=== PATIENT | male | born 1965 | race Caucasian/White ===

== ENCOUNTER → 2018-10-06 | Outpatient (CLI) | payer BC ==
[2018-10-08 21:31] LABS: Corn IgG 14.5 mcg/mL (< 2.0); Cow's Milk IgG 51.9 mcg/mL (< 2.0); Potato IgG 3.9 mcg/mL (< 2.0); Soybean IgG 4.5 mcg/mL (< 2.0); Tomato IgG 4.8 mcg/mL (< 2.0); Wheat IgG 10.9 mcg/mL (< 2.0)
[2018-10-10 08:09] LABS: Alt. alternata IgE Class CLASS II; Alternaria alternata IgE 1.56 kU/L (<0.35); Asperg. fumagatus IgE <0.35 kU/L (<0.35); Asperg. fumagatus IgE Class CLASS 0; Aureo. pullulans IgE <0.35 kU/L (<0.35); Birch(Com.Silvr) IgE <0.35 kU/L (<0.35); Birch(Com.Silvr) IgE Class CLASS 0; Candida albicans IgE Class CLASS 0; Cat Epith & Dander IgE <0.35 kU/L (<0.35); Cat Epith & Dander IgE Class CLASS 0; Clad herbarum IgE <0.35 kU/L (<0.35); Cockroach IgE <0.35 kU/L (<0.35); Com. Pigweed IgE <0.35 kU/L (<0.35); Com. Pigweed IgE Class CLASS 0; Cottonwood IgE <0.35 kU/L (<0.35); Dermato. Pteronyssinus IgE <0.35 kU/L (<0.35); Dermato. farinae IgE <0.35 kU/L (<0.35); Dermato. farinae IgE Class CLASS 0; Dog Dander IgE <0.35 kU/L (<0.35); English Plantain IgE Class CLASS 0; Epicoccum purpurascens Class CLASS 0; Epicoccum purpurascens IgE <0.35 kU/L (<0.35); Johnson Grass IgE Class CLASS 0; Lamb's Quarter IgE <0.35 kU/L (<0.35); Lamb's Quarter IgE Class CLASS 0; Maple (Box Elder) IgE <0.35 kU/L (<0.35); Maple (Box Elder) IgE Class CLASS 0; Mucor racemosus IgE <0.35 kU/L (<0.35); Mucor racemosus IgE Class CLASS 0; Oak IgE <0.35 kU/L (<0.35); Rhizopus nigricans IgE <0.35 kU/L (<0.35); S.rostrata/Helminth Class CLASS 0; S.rostrata/Helminth IgE <0.35 kU/L (<0.35); Sycamore(Mpl.Lf) IgE <0.35 kU/L (<0.35); Timothy Grass IgE 0.43 kU/L (<0.35); Walnut Tree IgE <0.35 kU/L (<0.35); Walnut Tree IgE Class CLASS 0; White Ash IgE Class CLASS 0
== END | disposition home or self-care (01) ==
LOC: LABWHC1 08:35
PROVIDERS: ATTEND Nurse Practitioner Family
DX: J30.89 Other allergic rhinitis (principal)
CPT/HCPCS: 36415; 86001; 86003

== ENCOUNTER → 2018-10-06 | Outpatient (CLI) | payer BC ==
--- NOTE | 2018-10-06 08:38 | CT ---
EXAMINATION TYPE: CT sinus wo con DATE OF EXAM: 10/06/2018 COMPARISON: None HISTORY: Facial pain, pressure and sinus drainage for 6+ weeks CT DLP: 594 mGycm CONTRAST: 0 mL of Isovue 300 The paranasal sinuses are examined in the axial plane at 2 mm thick sections. Reconstructed images i n the coronal plane were obtained. Mucosal thickening is through the inferior right maxillary sinus. Posterior ethmoid air cells have m ucosal thickening bilaterally. Some mild mucosal thickening is within anterior ethmoid air cells. Th ere is mucosal thickening within the bilateral sphenoid sinuses. Very minimal mucosal thickening may be within the left frontal sinus. The septum is evaluated. There is septal deviation to the right. The left ostiomeatal unit is patent. The right ostiomeatal unit is obstructed. IMPRESSIONS: 1. Obstruction of the right ostiomeatal unit. 2. Diffuse pansinus mucosal thickening without air-fluid levels can be related to chronic sinusitis
== END | disposition home or self-care (01) ==
LOC: RADCTMAIN 07:56
PROVIDERS: ATTEND Otolaryngology
DX: J34.89 Other specified disorders of nose and nasal sinuses (principal); J32.9 Chronic sinusitis, unspecified
CPT/HCPCS: 70486

== ENCOUNTER 2022-07-07 08:45 | Day surgery (SDC) | payer BC ==
[~2022-07-07 08:45] MED LIST: LACTATED RINGERS 1,000 ML IV SCH
[2022-07-07 09:33] VITALS: TEMP 96.8
[2022-07-07] MEDS ORDERED: PROPOFOL 10 MG/ML 20 ML VIAL IV ONE (10:26)
--- NOTE | 2022-07-07 10:50 | P.PCN ---
Date of Procedure: 07/07/22 Procedure(s) Performed: BRIEF HISTORY: Patient is a 57-year-old pleasant white male scheduled for an elective colonoscopy as a part of evaluation of chronic diarrhea for the last 2 years duration. He also has prior history of colon polyps. Last colonoscopy was 3 years ago. His been having bowel movements anywhere from 10-12 a day which are loose to watery in consistency. PROCEDURE PERFORMED: Colonoscopy with biopsy and snare polypectomy. PREOPERATIVE DIAGNOSIS: History of colon polyps and chronic diarrhea. IV sedation per Anesthesia. PROCEDURE: After informed consent was obtained, the patient, was brought into the endoscopy unit. IV sedation was administered by Anesthesia under continuous monitoring. Digital rectal examination was normal. Initially the Olympus CF-160 flexible video colonoscope was then inserted in the rectum, gradually advanced into the cecum without any difficulty. Careful examination was performed as the scope was gradually being withdrawn. Ileocecal valve and the appendiceal orifice were visualized and appeared normal. Prep was excellent. Mucosa of the cecum, ascending colon appeared normal. In the transverse colon there was a 5 mm polyp that was removed by snare polypectomy. Rest of the, transverse colon, descending colon, sigmoid colon, and rectum appeared normal. scattered sigmoidal mucosa seen. Random biopsies were done from ascending and descending colon to rule out microscopic/collagenous colitis. Retroflexion was performed in the rectum and no lesions were seen. The patient tolerated the procedure well. IMPRESSION: 5 mm transverse colon polyp status post polypectomy Scattered sigmoid diverticulosis RECOMMENDATIONS: Findings of this examination were discussed with the patient as well as his family. He was advised to follow with the biopsy results and he'll be seen in office in 2 weeks..
[2022-07-07 11:07] VITALS: BP 125/83; PULSE 63; RESP 18
== END 2022-07-07 11:33 | disposition home or self-care (01) ==
LOC: ORWHC2ENDO 08:45
PROVIDERS: ATTEND Internal Medicine Gastroenterology
DX: D12.3 Benign neoplasm of transverse colon (principal); K57.30 Diverticulosis of large intestine without perforation or abscess without bleeding; Z86.010 Personal history of colon polyps; Z79.899 Other long term (current) drug therapy; Z98.890 Other specified postprocedural states; Z91.012 Allergy to eggs
CPT/HCPCS: 88305; 45380; 45385; J2704

== ENCOUNTER → 2022-07-21 | Outpatient (CLI) | payer BC ==
[2022-07-22 03:38] LABS: Gliadin AB IgA, Deaminated NEGATIVE (NEGATIVE); Gliadin AB IgA, Unit 0.3 U/mL; Gliadin AB IgG, Deaminated NEGATIVE (NEGATIVE); Gliadin AB IgG, Unit <0.4 U/mL
== END | disposition home or self-care (01) ==
LOC: LABWHC1 16:07
PROVIDERS: ATTEND Internal Medicine Gastroenterology
DX: Z83.79 Family history of other diseases of the digestive system (principal)
CPT/HCPCS: 36415; 83516

== ENCOUNTER 2023-03-05 12:08 | Emergency (ER) | payer BC ==
[2023-03-05 12:14] VITALS: TEMP 100.1
[2023-03-05] MEDS ORDERED: ONDANSETRON 4 MG/2 ML VIAL IVP STA (12:29)
[2023-03-05] MEDS ORDERED: MORPHINE SULFATE 4 MG/ML SYRINGE IVP STA (12:29)
--- NOTE | 2023-03-05 12:32 | ED ---
General Adult HPI - General Chief complaint: Urogenital Stated complaint: Left side pain Time Seen by Provider: 03/05/23 12:16 Source: patient, RN notes reviewed Mode of arrival: ambulatory Limitations: no limitations - History of Present Illness Initial comments: 57-year-old male with a past medical history of CLL-SLL , hypertension, prostate disorder presents to the emergency room for chief only of left flank pain. Patient states this started last night. She states the pain is severe at an 8 out of 10. He could not sleep. States it is burning when he urinates and he is urinating frequently. Of note patient just received a chemo infusion 2 days ago at [facility] where he is being treated for his CLL. He occasionally has fevers after his treatments which she reports is normal for him. He states his doctors do not want him to take anything for the fever and monitor if it goes above 101.5. He is concerned he could have a kidney infection or kidney stone. He denies any diarrhea or GI symptoms. Denies any upper respiratory symptoms. Patient has no other complaints at this time including shortness of breath, chest pain, nausea or vomiting, headache, or visual changes. - Related Data Home Medications Medication Instructions Recorded Confirmed Cetirizine HCl [Zyrtec] 10 mg PO DAILY 04/28/16 03/05/23 Losartan Potassium [Cozaar] 100 mg PO DAILY 04/28/16 03/05/23 Multivitamin [Men's Multi-Vitamin] 1 tab PO DAILY 04/28/16 03/05/23 Propranolol LA [Inderal LA] 80 mg PO DAILY 07/06/22 03/05/23 ALPRAZolam [Xanax] 0.5 mg PO HS PRN 03/05/23 03/05/23 Acyclovir [Zovirax] 400 mg PO BID 03/05/23 03/05/23 Escitalopram [Lexapro] 5 mg PO HS 03/05/23 03/05/23 Gazyva (Obinutuzumab) 1 dose IV Q30D 03/05/23 03/05/23 Venetoclax [Venclexta] 400 mg PO DAILY@1800 03/05/23 03/05/23 amLODIPine [Norvasc] 5 mg PO DAILY 03/05/23 03/05/23 diphenhydrAMINE [Benadryl] 25 mg PO HS 03/05/23 03/05/23 traZODone HCL [Desyrel] 50 mg PO HS 03/05/23 03/05/23 Previous Rx's Medication Instructions Recorded Ondansetron Odt [Zofran Odt] 4 mg PO Q8HR PRN #14 tab 03/05/23 Sulfamethox-Tmp 800-160Mg [Bactrim 1 tab PO Q12HR #28 tab 03/05/23 DS 800-160 mg] Allergies Allergy/AdvReac Type Severity Reaction Status Date / Time No Known Allergies Allergy Verified 03/05/23 14:14 Review of Systems ROS Statement: Those systems with pertinent positive or pertinent negative responses have been documented in the HPI. ROS Other: All systems not noted in ROS Statement are negative. Past Medical History Past Medical History: Hypertension, Prostate Disorder Additional Past Medical History / Comment(s): hand tremors radha. CLL-SLL History of Any Multi-Drug Resistant Organisms: None Reported Past Surgical History: No Surgical Hx Reported Additional Past Surgical History / Comment(s): colonocsopy, liver biopsy,lft thumb surgery to repair injury Past Anesthesia/Blood Transfusion Reactions: No Reported Reaction Past Psychological History: No Psychological Hx Reported Smoking Status: Former smoker Past Alcohol Use History: Daily Past Drug Use History: None Reported - Past Family History Mother Family Medical History: Cancer Additional Family Medical History / Comment(s): PANCREAS- CANCER General Exam Limitations: no limitations General appearance: alert, in no apparent distress Head exam: Present: atraumatic Eye exam: Present: normal appearance, PERRL, EOMI. Absent: conjunctival inj ection ENT exam: Present: normal exam, mucous membranes moist Neck exam: Present: normal inspection, full ROM. Absent: tenderness Respiratory exam: Present: normal lung sounds bilaterally Cardiovascular Exam: Present: regular rate, normal rhythm, normal heart sounds GI/Abdominal exam: Present: soft, normal bowel sounds. Absent: distended, tenderness, guarding Back exam: Present: CVA tenderness (L). Absent: CVA tenderness (R) Neurological exam: Present: alert Course Vital Signs 03/05/23 03/05/23 03/05/23 12:09 12:50 13:00 Temperature 100.1 F H Pulse Rate 68 69 67 Respiratory 18 16 18 Rate Blood Pressure 142/81 120/67 127/74 O2 Sat by Pulse 94 L 98 99 Oximetry 03/05/23 03/05/23 13:30 14:00 Temperature Pulse Rate 71 73 Respiratory 18 16 Rate Blood Pressure 127/76 124/70 O2 Sat by Pulse 97 99 Oximetry Medical Decision Making - Medical Decision Making Was pt. sent in by a medical professional or institution (, [facility], SUPPLY PERSON, urgent care, hospital, or group home...) When possible be specific @ -No Did you speak to anyone other than the patient for history (EMS, parent, family, police, friend...)? What history was obtained from this source @ - Did you review nursing and triage notes (agree or disagree)? Why? @ -[I reviewed and agree with nursing and triage notes] Were old charts reviewed (outside hosp., previous admission, EMS record, old EKG, old radiological studies, urgent care reports/EKG's, group home records)? Report findings @ -[No old charts were reviewed] Differential Diagnosis (chest pain, altered mental status, abdominal pain women, abdominal pain men, vaginal bleeding, weakness, fever, dyspnea, syncope, headache, dizziness, GI bleed, back pain, seizure, CVA, palpatations, mental health)? @ -Sepsis, UTI, kidney stone, chemo reaction EKG interpreted by me (3pts min.). @ -[As above] X-rays interpreted by me (1pt min.). @ -Chest Xray CT interpreted by me (1pt min.). @ -CT abdomen/pelvis with pyelo U/S interpreted by me (1pt. min.). @ -[None done] What testing was considered but not performed or refused? (CT, X-rays, U/S, labs)? Why? @ -CT with contrast but could obscure stone What meds were considered but not given or refused? Why? @ -[None] Did you discuss the management of the patient with other professionals (professionals i.e. , ANGELICA, SUPPLY PERSON, lab, RT, psych nurse, social media manager, cyber operator, teacher, property and supply officer, supportive employment case manager)? Give summary @ -Dr Boo, pharmacist Was smoking cessation discussed for >3mins.? @ -[No] Was critical care preformed (if so, how long)? @ -[No] Were there social determinants of health that impacted care today? How? (Homelessness, low income, unemployed, alcoholism, drug addiction, transportation, low edu. Level, literacy, decrease access to med. care, nursing home, rehab)? @ -[No] Was there de-escalation of care discussed even if they declined (Discuss DNR or withdrawal of care, Hospice)? DNR status @ -[No] What co-morbidities impacted this encounter? (DM, HTN, Smoking, COPD, CAD, Cancer, CVA, ARF, Chemo, Hep., AIDS, mental health diagnosis, sleep apnea, morb id obesity)? @ -Cancer Was patient admitted / discharged? Hospital course, mention meds given and route, prescriptions, significant lab abnormalities, going to OR and other pertinent info. @ -Vitals are stable. Patient has a temperature of 100.1. White blood cell count was 11.4 with a left shift. Urinalysis does show evidence of urinary tract infection. Blood culture and urine culture pending. Chest x-ray is clear however CT abdomen and pelvis shows mild to moderate left-sided hydronephrosis without obstructing calculus. He does have additional adenopathy which is known. Patient was given 2 g Rocephin and IV fluids. I discussed outpatient treatment with pharmacist. Initial plan was to start patient on Cipro however he has a severe drug interaction with this. Therefore he will be put on Bactrim. He will follow-up with his doctor Tuesday morning. Strict return parameters. Undiagnosed new problem with uncertain prognosis? @ -[No] Drug Therapy requiring intensive monitoring for toxicity (Heparin, Nitro, Insulin, Cardizem)? @ -[No] Were any procedures done? @ -[No] Diagnosis/symptom? @ -Pyelonephritis Acute, or Chronic, or Acute on Chronic? @ -acute Uncomplicated (without systemic symptoms) or Complicated (systemic symptoms)? @ -complicated Side effects of treatment? @ -[No] Exacerbation, Progression, or Severe Exacerbation? @ -[No] Poses a threat to life or bodily function? How? (Chest pain, [place], HI, pneumonia, PE, COPD, DKA, ARF, appy, cholecystitis, CVA, Diverticulitis, Homicidal, Suici gail, threat to staff... and all critical care pts) @ -[No] - Lab Data Result diagrams: 03/05/23 12:40 03/05/23 12:40 Lab Results 03/05/23 03/05/23 03/05/23 Range/Units 12:25 12:25 12:40 WBC 11.4 H (3.8-10.6) k/uL RBC 4.57 (4.30-5.90) m/uL Hgb 14.3 (13.0-17.5) gm/dL Hct 42.6 (39.0-53.0) % MCV 93.1 (80.0-100.0) fL MCH 31.2 (25.0-35.0) pg MCHC 33.6 (31.0-37.0) g/dL RDW 13.0 (11.5-15.5) % Plt Count 433 (150-450) k/uL MPV 6.6 Neutrophils % 83 % Lymphocytes % 7 % Monocytes % 8 % Eosinophils % 1 % Basophils % 0 % Neutrophils # 9.5 H (1.3-7.7) k/uL Lymphocytes # 0.8 L (1.0-4.8) k/uL Monocytes # 0.9 (0-1.0) k/uL Eosinophils # 0.1 (0-0.7) k/uL Basophils # 0.0 (0-0.2) k/uL Sodium (137-145) mmol/L Potassium (3.5-5.1) mmol/L Chloride (98-107) mmol/L Carbon Dioxide (22-30) mmol/L Anion Gap mmol/L BUN (9-20) mg/dL Creatinine (0.66-1.25) mg/dL Est GFR (CKD-EPI)AfAm (>60 ml/min/1.73 sqM) Est GFR (CKD-EPI)NonAf (>60 ml/min/1.73 sqM) Glucose (74-99) mg/dL Plasma Lactic Acid Gagandeep (0.7-2.0) mmol/L Calcium (8.4-10.2) mg/dL Magnesium (1.6-2.3) mg/dL Total Bilirubin (0.2-1.3) mg/dL AST (17-59) U/L ALT (4-49) U/L Alkaline Phosphatase (38-126) U/L Total Protein (6.3-8.2) g/dL Albumin (3.5-5.0) g/dL Urine Color Yellow Urine Appearance Turbid (Clear) Urine pH 7.5 (5.0-8.0) Ur Specific [place] 1.018 (1.001-1.035) Urine Protein 3+ H (Negative) Urine Glucose (UA) Negative (Negative) Urine Ketones Negative (Negative) Urine Blood Large H (Negative) Urine Nitrite Negative (Negative) Urine Bilirubin Negative (Negative) Urine Urobilinogen <2.0 (<2.0) mg/dL Ur Leukocyte Esterase Large H (Negative) Urine RBC 128 H (0-5) /hpf Urine WBC >182 H (0-5) /hpf Urine Mucus Few H (None) /hpf Influenza Type A (PCR) Not Detected (Not Detectd) Influenza Type B (PCR) Not Detected (Not Detectd) RSV (PCR) Not Detected (Not Detectd) SARS-CoV-2 (PCR) Not Detected (Not Detectd) 03/05/23 03/05/23 Range/Units 12:40 12:40 WBC (3.8-10.6) k/uL RBC (4.30-5.90) m/uL Hgb (13.0-17.5) gm/dL Hct (39.0-53.0) % MCV (80.0-100.0) fL MCH (25.0-35.0) pg MCHC (31.0-37.0) g/dL RDW (11.5-15.5) % Plt Count (150-450) k/uL MPV Neutrophils % % Lymphocytes % % Monocytes % % Eosinophils % % Basophils % % Neutrophils # (1.3-7.7) k/uL Lymphocytes # (1.0-4.8) k/uL Monocytes # (0-1.0) k/uL Eosinophils # (0-0.7) k/uL Basophils # (0-0.2) k/uL Sodium 139 (137-145) mmol/L Potassium 4.0 (3.5-5.1) mmol/L Chloride 101 (98-107) mmol/L Carbon Dioxide 28 (22-30) mmol/L Anion Gap 10 mmol/L BUN 9 (9-20) mg/dL Creatinine 0.83 (0.66-1.25) mg/dL Est GFR (CKD-EPI)AfAm >90 (>60 ml/min/1.73 sqM) Est GFR (CKD-EPI)NonAf >90 (>60 ml/min/1.73 sqM) Glucose 108 H (74-99) mg/dL Plasma Lactic Acid Gagandeep 1.6 (0.7-2.0) mmol/L Calcium 9.5 (8.4-10.2) mg/dL Magnesium 1.9 (1.6-2.3) mg/dL Total Bilirubin 2.4 H (0.2-1.3) mg/dL AST 18 (17-59) U/L ALT 18 (4-49) U/L Alkaline Phosphatase 50 (38-126) U/L Total Protein 8.0 (6.3-8.2) g/dL Albumin 4.8 (3.5-5.0) g/dL Urine Color Urine Appearance (Clear) Urine pH (5.0-8.0) Ur Specific [place] (1.001-1.035) Urine Protein (Negative) Urine Glucose (UA) (Negative) Urine Ketones (Negative) Urine Blood (Negative) Urine Nitrite (Negative) Urine Bilirubin (Negative) Urine Urobilinogen (<2.0) mg/dL Ur Leukocyte Esterase (Negative) Urine RBC (0-5) /hpf Urine WBC (0-5) /hpf Urine Mucus (None) /hpf Influenza Type A (PCR) (Not Detectd) Influenza Type B (PCR) (Not Detectd) RSV (PCR) (Not Detectd) SARS-CoV-2 (PCR) (Not Detectd) Disposition Clinical Impression: Leukocytosis, Pyelonephritis Disposition: HOME SELF-CARE Condition: Good Instructions (If sedation given, give patient instructions): Kidney Infection (ED) Additional Instructions: Please take antibiotic as directed. Drink plenty of fluids. Follow-up with your doctor Tuesday morning. If you're getting worsening symptoms please return to the emergency room. Prescriptions: Sulfamethox-Tmp 800-160Mg [Bactrim DS 800-160 mg] 1 tab PO Q12HR #28 tab Ondansetron Odt [Zofran Odt] 4 mg PO Q8HR PRN #14 tab PRN Reason: Nausea Is patient prescribed a controlled substance at d/c from ED?: No Referrals: Kendell Aguillon MD [Primary Care Provider] - 1-2 days Time of Disposition: 15:45
[2023-03-05 12:55] LABS: Basophils % (A) 0 %; Eosinophils # (A) 0.1 k/uL (0-0.7); Eosinophils % (A) 1 %; HCT 42.6 % (39.0-53.0); HGB 14.3 gm/dL (13.0-17.5); Lymphocytes # (A) 0.8 k/uL (1.0-4.8); Lymphocytes % (A) 7 %; MCH 31.2 pg (25.0-35.0); MCHC 33.6 g/dL (31.0-37.0); MCV 93.1 fL (80.0-100.0); Mean Platelet Volume 6.6; Monocytes # (A) 0.9 k/uL (0-1.0); Monocytes % (A) 8 %; Neutrophils # (A) 9.5 k/uL (1.3-7.7); Neutrophils % (A) 83 %; Platelet Count 433 k/uL (150-450); RBC 4.57 m/uL (4.30-5.90); WBC 11.4 k/uL (3.8-10.6)
[2023-03-05 13:02] LABS: Appearance,Urine Turbid (Clear); Bilirubin,Urine Negative (Negative); Blood,Urine Large (Negative); Color,Urine Yellow; Glucose,Urine (UA) Negative (Negative); Ketones,Urine Negative (Negative); Leukocyte Esterase,Urine Large (Negative); Mucus,Urine Few /hpf; Nitrite,Urine Negative (Negative); PH, Urine 7.5 (5.0-8.0); Protein,Urine 3+ (Negative); RBC,Urine 128 /hpf (0-5); Specific Gravity,Urine 1.018 (1.001-1.035); Urobilinogen,Urine <2.0 mg/dL (<2.0); WBC,Urine >182 /hpf (0-5)
[2023-03-05] MEDS: SODIUM CHLORIDE 0.9% 500 ML 500 ML IV SCH ×2 (13:02→13:52)
--- NOTE | 2023-03-05 13:07 | XR ---
EXAMINATION TYPE: XR chest 2V DATE OF EXAM: 03/05/2023 COMPARISON: NONE HISTORY: Shortness of breath TECHNIQUE: Frontal and lateral views of the chest are obtained. FINDINGS: Scattered senescent parenchymal changes noted. No evidence for infiltrate. No evidence for atelectasis. Heart size is stable. Mediastinal structures are stable and grossly unremarkable. No evidence for hilar prominence. Degenerative changes dorsal spine. IMPRESSION: 1. No evidence for acute pulmonary disease.
[2023-03-05 13:12] LABS: ALT 18 U/L (4-49); AST 18 U/L (17-59); African American GFR (CKD) >90 (>60 ml/min/1.73 sqM); Albumin 4.8 g/dL (3.5-5.0); Alkaline Phosphatase 50 U/L (38-126); Anion Gap 10 mmol/L; Blood Urea Nitrogen 9 mg/dL (9-20); Calcium 9.5 mg/dL (8.4-10.2); Carbon Dioxide 28 mmol/L (22-30); Chloride 101 mmol/L (98-107); Glucose 108 mg/dL (74-99); Magnesium 1.9 mg/dL (1.6-2.3); Non-African American GFR(CKD) >90 (>60 ml/min/1.73 sqM); Sodium 139 mmol/L (137-145); Total Bilirubin 2.4 mg/dL (0.2-1.3)
[2023-03-05] MEDS ORDERED: cefTRIAXone IN SWFI 1,000 MG/10 ML SYRINGE IVP STA ×2 (13:12→13:13)
[2023-03-05 14:11] VITALS: BP 124/70; PULSE 73; RESP 16
--- NOTE | 2023-03-05 14:41 | CT ---
EXAMINATION TYPE: CT abdomen pelvis wo con DATE OF EXAM: 03/05/2023 COMPARISON: None HISTORY: Posslbe kidney stones, pt on medication for leukemia, is noted side effect CT DLP: 631.4 mGycm Examination of the solid and hollow viscera is limited given the lack of contrast. FINDINGS: LUNG BASES: No evidence for nodule. No evidence for infiltrate. Trace right-sided pleural effusion. M ild linear atelectasis at the lung bases. LIVER/GB: The gallbladder is unremarkable. No space-occupying hepatic lesion. PANCREAS: No pancreatic mass identified. No inflammatory process seen. SPLEEN: No evidence for splenomegaly. No intrasplenic lesions seen. ADRENALS: No adrenal nodules identified. No evidence for thickening. KIDNEYS: There are extrarenal pelves noted bilaterally. There appears to be a mild to moderate left-s ided hydronephrosis however I do not see evidence for an obstructing calculus. This may reflect a rec ently passed calculus or nonradiopaque calculus. Fullness of the left ureter also be related to acqui red or congenital UPJ obstruction. There is a nonobstructing calculus lower pole left kidney measurin g 9.6 mm. BOWEL: Appendix has a normal appearance. No evidence of bowel obstruction. No inflammatory process. Lymph nodes: Soft tissue mass adjacent to the greater gastric curvature measuring 7.2 x 6.8 cm is fel t to reflect adenopathy. Multiple enlarged lymph nodes are seen within the small bowel mesentery as w ell as the periaortic and aorto intracaval regions. Abdominal aorta: Atheromatous changes seen. No evidence for aneurysm. Genital organs: Prostate gland calcifications. Other: No significant abnormality. IMPRESSION: 1. [id number] left-sided hydronephrosis however obstructing calculus is not visualized. This co uld be the result of congenital or acquired left UPJ obstruction. Nonobstructing calculus lower pole left kidney. Nonspecific renal stranding bilaterally. 2. Mesenteric and retroperitoneal adenopathy as well as conglomerate soft tissue mass adjacent to the greater gastric curvature also felt to reflect additional adenopathy.
[2023-03-05] MEDS ORDERED: METOCLOPRAMIDE 5 MG/ML 2 ML VIAL IVP STA (15:46)
== END 2023-03-05 16:32 | disposition home or self-care (01) ==
LOC: EC 12:08
DX: D72.829 Elevated white blood cell count, unspecified (principal); N13.6 Pyonephrosis; I10 Essential (primary) hypertension; Z87.891 Personal history of nicotine dependence; Z79.899 Other long term (current) drug therapy; Z20.822 Contact with and (suspected) exposure to COVID-19
CPT/HCPCS: 36415; 80053; 83605; 83735; 85025; 81001; 87040; 87086; 87636; 71046; 74176; 99284; 96374; 96375 ×3; 96361 ×3; J2270; J2765; J2405; J0696; 87077; 87186

== ENCOUNTER 2023-03-30 11:33 | Observation (INO) | payer BC ==
[2023-03-30] MEDS ORDERED: ONDANSETRON 4 MG/2 ML VIAL IVP STA (12:05)
[2023-03-30] MEDS ORDERED: ACETAMINOPHEN TAB 325 MG TAB PO STA (12:15)
--- NOTE | 2023-03-30 12:27 | ED ---
General Adult HPI - General Chief complaint: Nausea/Vomiting/Diarrhea Stated complaint: Poss UTI Time Seen by Provider: 03/30/23 12:01 Source: patient Mode of arrival: ambulatory Limitations: no limitations - History of Present Illness Initial comments: This patient is a 57-year-old man who presents with concern that he believes she is having a recurrence of urinary tract infection. The patient gives history of CLL receiving monthly chemotherapy through the [facility]. Last treatment was proximally 3 weeks ago patient notes that over the past 1-2 days he has been having dysuria. Over last night into this morning he was having fevers, myalgias, and multiple episodes of vomiting. He states he was not really tolerating much in way of oral intake. He denies abdominal pain but states that he aches everywhere. The patient was seen here last week of February and was diagnosed with urinary tract infection. He states that he received IV antibiotics and then a course of Bactrim. He followed up with his [facility] physician who did run cultures but he states there are no results yet. Onset/Timin -: days(s) Quality: aching Consistency: constant Improves with: none Worsens with: none Associated Symptoms: fever/chills, nausea/vomiting Treatments Prior to Arrival: none - Related Data Home Medications Medication Instructions Recorded Confirmed Losartan Potassium [Cozaar] 100 mg PO DAILY 04/28/16 03/30/23 Propranolol LA [Inderal LA] 80 mg PO DAILY 07/06/22 03/30/23 ALPRAZolam [Xanax] 0.5 mg PO HS PRN 03/05/23 03/30/23 Acyclovir [Zovirax] 400 mg PO BID 03/05/23 03/30/23 Escitalopram [Lexapro] 5 mg PO HS 03/05/23 03/30/23 Venetoclax [Venclexta] 400 mg PO DAILY@1800 03/05/23 03/30/23 amLODIPine [Norvasc] 5 mg PO DAILY 03/05/23 03/30/23 diphenhydrAMINE [Benadryl] 25 mg PO HS 03/05/23 03/30/23 traZODone HCL [Desyrel] 50 mg PO HS PRN 03/05/23 03/30/23 Previous Rx's Medication Instructions Recorded Ondansetron Odt [Zofran ODT] 4 mg PO Q8HR PRN #14 tab 03/05/23 Budesonide-Formot 160-4.5 Mcg 2 puff INHALATION RT-BID 30 Days 04/01/23 [Symbicort 160-4.5 Mcg Inhaler] #1 each Famotidine [Pepcid] 20 mg PO BID 30 Days #60 tab 04/01/23 Loratadine [Claritin] 10 mg PO DAILY 90 Days #90 tab 04/01/23 Allergies Allergy/AdvReac Type Severity Reaction Status Date / Time corn Allergy sinus Verified 03/31/23 09:12 drainage egg Allergy Anaphylaxis Verified 03/31/23 09:20 milk Allergy Anaphylaxis Verified 03/31/23 09:20 Milk Containing Products Allergy Anaphylaxis Verified 03/31/23 09:20 wheat Allergy sinus Verified 03/31/23 09:13 drainage Review of Systems ROS Statement: Those systems with pertinent positive or pertinent negative responses have been documented in the HPI. ROS Other: All systems not noted in ROS Statement are negative. Constitutional: Reports: fever, chills Eyes: Denies: eye discharge ENT: Denies: throat pain, congestion Respiratory: Denies: cough, dyspnea, wheezes Cardiovascular: Denies: chest pain, palpitations, edema, syncope Gastrointestinal: Reports: nausea, vomiting. Denies: abdominal pain, diarrhea, constipation, hematemesis, melena, hematochezia Genitourinary: Reports: dysuria, frequency. Denies: discharge, testicular pain, testicular mass Musculoskeletal: Reports: myalgia. Denies: back pain Skin: Denies: rash Neurological: Denies: headache, weakness Past Medical History Past Medical History: Hypertension, Prostate Disorder Additional Past Medical History / Comment(s): hand tremors radha. CLL-SLL History of Any Multi-Drug Resistant Organisms: None Reported Past Surgical History: No Surgical Hx Reported Additional Past Surgical History / Comment(s): colonocsopy, liver biopsy,lft thumb surgery to repair injury Past Anesthesia/Blood Transfusion Reactions: No Reported Reaction Past Psychological History: No Psychological Hx Reported Smoking Status: Former smoker Past Alcohol Use History: Daily Past Drug Use History: None Reported - Past Family History Mother Family Medical History: Cancer Additional Family Medical History / Comment(s): PANCREAS- CANCER General Exam Limitations: no limitations General appearance: alert, in no apparent distress Head exam: Present: atraumatic, normocephalic Eye exam: Present: normal appearance. Absent: scleral icterus, conjunctival injection Neck exam: Present: normal inspection, full ROM. Absent: meningismus Respiratory exam: Present: normal lung sounds bilaterally. Absent: respiratory distress, rales, rhonchi, stridor, accessory muscle use Cardiovascular Exam: Present: regular rate, normal rhythm, normal heart sounds. Absent: systolic murmur, diastolic murmur, rubs, gallop GI/Abdominal exam: Present: soft. Absent: distended, tenderness, guarding, rebound, mass Extremities exam: Present: normal inspection, normal capillary refill. Absent: pedal edema, calf tenderness Back exam: Present: normal inspection. Absent: CVA tenderness (R), CVA tenderness (L) Neurological exam: Present: alert Skin exam: Present: warm, dry, intact, normal color. Absent: rash Course Vital Signs 03/30/23 03/30/23 03/30/23 11:45 13:48 18:46 Temperature 100.6 F H 98.6 F 98.2 F Pulse Rate 84 Respiratory 18 20 Rate Blood Pressure 102/84 111/71 113/75 O2 Sat by Pulse 97 Oximetry Medical Decision Making - Medical Decision Making The patient had chest x-ray which I interpreted as being negative for acute infiltrate, pneumothorax, congestive heart failure Shouldn't is 57-year-old man currently undergoing treatment for CLL, who has had development of fever over the past day. The workup does reveal what appears to be mild urinary tract infection area the patient treated for similar on March 05. Given the recurrence and his immunocompromise status will admit the patient to have infectious disease consultation. Antibiotics and fluids are started. Patient's awaiting culture results. Was pt. sent in by a medical professional or institution (, PA, WRINKLE CHASER, urgent care, hospital, or long term...) When possible be specific @ -The patient was advised to seek treatment in the emergency department by his oncologist Did you speak to anyone other than the patient for history (EMS, parent, family, police, friend...)? What history was obtained from this source @ -[No] Did you review nursing and triage notes (agree or disagree)? Why? @ -[I reviewed and agree with nursing and triage notes] Were old charts reviewed (outside hosp., previous admission, EMS record, old EKG, old radiological studies, urgent care reports/EKG's, long term records)? Report findings @ -[No old charts were reviewed] Differential Diagnosis (chest pain, altered mental status, abdominal pain women, abdominal pain men, vaginal bleeding, weakness, fever, dyspnea, syncope, headache, dizziness, GI bleed, back pain, seizure, CVA, palpatations, mental health, musculoskeletal)? @ -[Differential Fever: Pneumonia, viral URI, endocarditis, myocarditis, pericarditis, otitis, sinusitis, peritonsillar Abscess, retropharyngeal Abscess, epiglottitis, peritonitis, appendicitis, Sylwia cystitis, diverticulitis, hepatitis, colitis, UTI, PID, TOA, pyelonephritis, prostatitis, epididymitis, meningitis, encephalitis, pulmonary embolism, CVA, thyroid storm, pancreatitis, adrenal crisis, cavernous sinus thrombosis, this is not meant to be an all-inclusive list. EKG interpreted by me (3pts min.). @ -[As above] X-rays interpreted by me (1pt min.). @ -[None done] CT interpreted by me (1pt min.). @ -[None done] U/S interpreted by me (1pt. min.). @ -[None done] What testing was considered but not performed or refused? (CT, X-rays, U/S, labs)? Why? @ -[None] What meds were considered but not given or refused? Why? @ -[None] Did you discuss the management of the patient with other professionals (professionals i.e. , PA, [employer]INKLE CH[employer]ER, lab, RT, psych nurse, social media intern, steward/stewardess dining room, teacher, lodge officer, family independence case manager)? Give summary @ -[Case discussed with the admitting physician Was smoking cessation discussed for >3mins.? @ -[No] Was critical care preformed (if so, how long)? @ -[No] Were there social determinants of health that impacted care today? How? (Homelessness, low income, unemployed, alcoholism, drug addiction, transportation, low edu. Level, literacy, decrease access to med. care, group home, rehab)? @ -[No] Was there de-escalation of care discussed even if they declined (Discuss DNR or withdrawal of care, Hospice)? DNR status @ -[No] What co-morbidities impacted this encounter? (DM, HTN, Smoking, COPD, CAD, Cancer, CVA, ARF, Chemo, Hep., AIDS, mental health diagnosis, sleep apnea, morbid obesity)? @ -[The patient has underlying CLL currently receiving treatment Was patient admitted / discharged? Hospital course, mention meds given and route, prescriptions, significant lab abnormalities, going to OR and other pertinent info. @ -[See above Undiagnosed new problem with uncertain prognosis? @ -[No] Drug Therapy requiring intensive monitoring for toxicity (Heparin, Nitro, Insulin, Cardizem)? @ -[No] Were any procedures done? @ -[No] Diagnosis/symptom? @ -Acute fever Acute urinary tract infection Acute, or Chronic, or Acute on Chronic? @ -[default] Uncomplicated (without systemic symptoms) or Complicated (systemic symptoms)? @ -[Uncomplicated Side effects of treatment? @ -[No] Exacerbation, Progression, or Severe Exacerbation? @ -[No] Poses a threat to life or bodily function? How? (Chest pain, USA, ND, pneumonia, PE, COPD, DKA, ARF, appy, cholecystitis, CVA, Diverticulitis, Homicidal, Suicidal, threat to staff... and all critical care pts) @ -[Yes, infection in patient currently receiving chemotherapy may progress to sepsis/ - Lab Data Result diagrams: 03/31/23 05:21 03/31/23 05:21 Lab Results 03/30/23 03/30/23 03/30/23 Range/Units 12:15 12:15 12:15 WBC 7.8 (3.8-10.6) k/uL RBC 4.13 L (4.30-5.90) m/uL Hgb 12.4 L (13.0-17.5) gm/dL Hct 36.8 L (39.0-53.0) % MCV 89.1 (80.0-100.0) fL MCH 29.9 (25.0-35.0) pg MCHC 33.6 (31.0-37.0) g/dL RDW 13.9 (11.5-15.5) % Plt Count 256 (150-450) k/uL MPV 7.0 Neutrophils % 84 % Lymphocytes % 5 % Monocytes % 9 % Eosinophils % 1 % Basophils % 0 % Neutrophils # 6.6 (1.3-7.7) k/uL Lymphocytes # 0.4 L (1.0-4.8) k/uL Monocytes # 0.7 (0-1.0) k/uL Eosinophils # 0.1 (0-0.7) k/uL Basophils # 0.0 (0-0.2) k/uL Sodium 133 L (137-145) mmol/L Potassium 3.7 (3.5-5.1) mmol/L Chloride 101 (98-107) mmol/L Carbon Dioxide 24 (22-30) mmol/L Anion Gap 8 mmol/L BUN 13 (9-20) mg/dL Creatinine 0.91 (0.66-1.25) mg/dL Est GFR (CKD-EPI)AfAm >90 (>60 ml/min/1.73 sqM) Est GFR (CKD-EPI)NonAf >90 (>60 ml/min/1.73 sqM) Glucose 109 H (74-99) mg/dL Calcium 8.5 (8.4-10.2) mg/dL Total Bilirubin 2.2 H (0.2-1.3) mg/dL AST 54 (17-59) U/L ALT 49 (4-49) U/L Alkaline Phosphatase 38 (38-126) U/L Total Protein 6.4 (6.3-8.2) g/dL Albumin 3.8 (3.5-5.0) g/dL Amylase 34 (30-110) U/L Lipase 20 L (23-300) U/L Urine Color Yellow Urine Appearance Clear (Clear) Urine pH 7.0 (5.0-8.0) Ur Specific [place] 1.016 (1.001-1.035) Urine Protein Negative (Negative) Urine Glucose (UA) Negative (Negative) Urine Ketones Negative (Negative) Urine Blood Small H (Negative) Urine Nitrite Negative (Negative) Urine Bilirubin Negative (Negative) Urine Urobilinogen 2.0 (<2.0) mg/dL Ur Leukocyte Esterase Moderate H (Negative) Urine RBC 42 H (0-5) /hpf Urine WBC 12 H (0-5) /hpf Coronavirus (PCR) (Not Detectd) 03/30/23 Range/Units 12:15 WBC (3.8-10.6) k/uL RBC (4.30-5.90) m/uL Hgb (13.0-17.5) gm/dL Hct (39.0-53.0) % MCV (80.0-100.0) fL MCH (25.0-35.0) pg MCHC (31.0-37.0) g/dL RDW (11.5-15.5) % Plt Count (150-450) k/uL MPV Neutrophils % % Lymphocytes % % Monocytes % % Eosinophils % % Basophils % % Neutrophils # (1.3-7.7) k/uL Lymphocytes # (1.0-4.8) k/uL Monocytes # (0-1.0) k/uL Eosinophils # (0-0.7) k/uL Basophils # (0-0.2) k/uL Sodium (137-145) mmol/L Potassium (3.5-5.1) mmol/L Chloride (98-107) mmol/L Carbon Dioxide (22-30) mmol/L Anion Gap mmol/L BUN (9-20) mg/dL Creatinine (0.66-1.25) mg/dL Est GFR (CKD-EPI)AfAm (>60 ml/min/1.73 sqM) Est GFR (CKD-EPI)NonAf (>60 ml/min/1.73 sqM) Glucose (74-99) mg/dL Calcium (8.4-10.2) mg/dL Total Bilirubin (0.2-1.3) mg/dL AST (17-59) U/L ALT (4-49) U/L Alkaline Phosphatase (38-126) U/L Total Protein (6.3-8.2) g/dL Albumin (3.5-5.0) g/dL Amylase (30-110) U/L Lipase (23-300) U/L Urine Color Urine Appearance (Clear) Urine pH (5.0-8.0) Ur Specific [place] (1.001-1.035) Urine Protein (Negative) Urine Glucose (UA) (Negative) Urine Ketones (Negative) Urine Blood (Negative) Urine Nitrite (Negative) Urine Bilirubin (Negative) Urine Urobilinogen (<2.0) mg/dL Ur Leukocyte Esterase (Negative) Urine RBC (0-5) /hpf Urine WBC (0-5) /hpf Coronavirus (PCR) Not Detected (Not Detectd) Disposition Clinical Impression: Fever, Urinary tract infection Disposition: ADMITTED IP TO THIS HOSP Condition: Fair
--- NOTE | 2023-03-30 12:45 | XR ---
EXAMINATION TYPE: XR chest 2V DATE OF EXAM: 03/30/2023 COMPARISON: 03/05/2023 INDICATION: Pain, history of leukemia TECHNIQUE: Frontal and lateral views of the chest are obtained. FINDINGS: The heart size is normal. The pulmonary vasculature is normal. The lungs are clear. IMPRESSION: 1. No acute pulmonary process.
[2023-03-30 12:51] LABS: Basophils % (A) 0 %; Eosinophils # (A) 0.1 k/uL (0-0.7); Eosinophils % (A) 1 %; HCT 36.8 % (39.0-53.0); HGB 12.4 gm/dL (13.0-17.5); Lymphocytes # (A) 0.4 k/uL (1.0-4.8); Lymphocytes % (A) 5 %; MCH 29.9 pg (25.0-35.0); MCHC 33.6 g/dL (31.0-37.0); MCV 89.1 fL (80.0-100.0); Monocytes # (A) 0.7 k/uL (0-1.0); Monocytes % (A) 9 %; Neutrophils # (A) 6.6 k/uL (1.3-7.7); Neutrophils % (A) 84 %; Platelet Count 256 k/uL (150-450); RBC 4.13 m/uL (4.30-5.90); RDW 13.9 % (11.5-15.5); WBC 7.8 k/uL (3.8-10.6)
[2023-03-30 13:15] LABS: ALT 49 U/L (4-49); AST 54 U/L (17-59); African American GFR (CKD) >90 (>60 ml/min/1.73 sqM); Albumin 3.8 g/dL (3.5-5.0); Alkaline Phosphatase 38 U/L (38-126); Amylase 34 U/L (30-110); Anion Gap 8 mmol/L; Blood Urea Nitrogen 13 mg/dL (9-20); Calcium 8.5 mg/dL (8.4-10.2); Carbon Dioxide 24 mmol/L (22-30); Chloride 101 mmol/L (98-107); Glucose 109 mg/dL (74-99); Lipase 20 U/L (23-300); Non-African American GFR(CKD) >90 (>60 ml/min/1.73 sqM); Potassium 3.7 mmol/L (3.5-5.1); Sodium 133 mmol/L (137-145); Total Bilirubin 2.2 mg/dL (0.2-1.3); Total Protein 6.4 g/dL (6.3-8.2)
[2023-03-30 14:12] LABS: Appearance,Urine Clear (Clear); Bilirubin,Urine Negative (Negative); Blood,Urine Small (Negative); Color,Urine Yellow; Glucose,Urine (UA) Negative (Negative); Ketones,Urine Negative (Negative); Leukocyte Esterase,Urine Moderate (Negative); Nitrite,Urine Negative (Negative); Protein,Urine Negative (Negative); RBC,Urine 42 /hpf (0-5); Specific Gravity,Urine 1.016 (1.001-1.035); WBC,Urine 12 /hpf (0-5)
[2023-03-30] MEDS ORDERED: SULFAMETHOX-TMP 800-160MG 1 EACH TAB PO STA (15:51)
[2023-03-30] MEDS ORDERED: cefTRIAXone IN SWFI 1,000 MG/10 ML SYRINGE IVP STA (15:53)
[2023-03-30] MEDS ORDERED: SODIUM CHLORIDE 0.9% 1,000 ML IV ONE (16:46)
[2023-03-30] MEDS ORDERED: ALPRAZolam 0.25 MG TAB PO PRN (16:56)
[2023-03-30] MEDS ORDERED: ONDANSETRON 4 MG/2 ML VIAL IVP PRN (16:56)
[2023-03-30] MEDS ORDERED: NALOXONE 0.4 MG/ML 1 ML VIAL IV PRN (16:56)
[2023-03-30] MEDS ORDERED: ACETAMINOPHEN TAB 325 MG TAB PO PRN (16:56)
[2023-03-30] MEDS ORDERED: HYDROcodone/APAP 5-325MG 1 EACH TAB PO PRN (16:56)
[2023-03-30] MEDS: SODIUM CHLORIDE 0.9% 1,000 ML IV SCH (18:46)
[2023-03-30] MEDS: Venetoclax [Venclexta] 100 MG Tablet PO SCH (20:29)
[2023-03-30] MEDS: ACYCLOVIR 200 MG CAP PO SCH (21:34)
[2023-03-30] MEDS: traZODone HCL 50 MG TAB PO SCH (21:34)
[2023-03-30] MEDS: FAMOTIDINE 20 MG TAB PO SCH (21:34)
[2023-03-30] MEDS: diphenhydrAMINE 25 MG CAP PO SCH (21:34)
[2023-03-30] MEDS: ESCITALOPRAM 5 MG TAB PO SCH (21:34)
--- NOTE | 2023-03-31 00:54 | HP ---
HISTORY AND PHYSICAL CHIEF COMPLAINT: Possibly UTI. HISTORY OF PRESENT ILLNESS: He is 57. He is having a recurrent UTI. He has a history of CLL, on chemotherapy he has been getting for CLL. He is admitted with UTI, failing outpatient treatment with Bactrim. Urine cultures, no results are back yet. He has thrombocytopenia. HOME MEDICATIONS: Include: 1. Propranolol 80 mg daily. 2. Multivitamin daily. 3. Cozaar 100 mg daily. 4. Zyrtec 10 mg daily. 5. Xanax 0.5 at night. 6. Zovirax 400 b.i.d. 7. Lexapro 5 mg daily. 8. Venclexta 400 mg daily. 9. Norvasc 5 mg daily. 10.Benadryl p.r.n. 11.Desyrel 50 at bedtime. ALLERGIES: Negative. REVIEW OF SYSTEMS: A 14-point review of systems otherwise negative. PAST MEDICAL HISTORY: Hypertension, prostate disorder, hand tremors, CLL. PAST SURGICAL HISTORY: Liver biopsy, colonoscopy, thumb surgeries. FAMILY HISTORY: Mother with pancreatic cancer. PHYSICAL EXAMINATION: VITAL SIGNS: Temperature is 100.6, pulse 84. Blood pressure 106/84, O2 sat 97%. CARDIOVASCULAR: S1, S2. LUNGS: Mild wheeze. HEENT: Normocephalic, atraumatic. Pupils equal, round, reactive. NEUROLOGIC: Cranial nerves intact. SKIN: Warm, dry. LABORATORY DATA: Hemoglobin is 12.4. EKG shows right bundle branch block. ASSESSMENT: Chronic lymphocytic leukemia, right bundle branch block, acute on chronic anemia, thrombocytopenia. Infectious Disease consult. Broad-spectrum antibiotics. Please see further orders. Prognosis guarded. MMODL / IJN: [id number] /
[2023-03-31] MEDS: SODIUM CHLORIDE 0.9% 1,000 ML IV SCH ×4 (01:10→22:36)
[2023-03-31 09:00] LABS: Basophils # (A) 0.02 X 10*3/uL (0.00-0.10); Basophils % (A) 0.6 %; Eosinophils # (A) 0.03 X 10*3/uL (0.04-0.35); Eosinophils % (A) 0.9 %; HCT 32.3 % (39.6-50.0); HGB 10.5 d/dL (12.0-15.0); Lymphocytes # (A) 0.98 X 10*3/uL (0.90-5.00); Lymphocytes % (A) 28.2 %; MCH 29.5 pg (27.0-32.0); MCHC 32.5 d/dL (32.0-37.0); MCV 90.7 FL (80.0-97.0); Mean Platelet Volume 9.9 FL (9.5-12.2); Monocytes # (A) 0.56 X 10*3/uL (0.20-1.00); Monocytes % (A) 16.1 %; NRBC Per 100 WBC 0 X 10*3/uL (0.00-0.01); Neutrophils # (A) 1.86 X 10*3/uL (1.80-7.70); Neutrophils % (A) 53.6 %; Platelet Count 199 X 10*3/uL (140-440); RBC 3.56 X 10*6/uL (4.40-5.60); RDW 13.2 % (11.5-14.5); WBC 3.47 X 10*3/uL (4.50-10.00)
[2023-03-31 09:07] LABS: ALT 46 U/L (10-49); AST 31 U/L (14-35); Albumin 3.4 d/dL (3.8-4.9); Alkaline Phosphatase 33 U/L (41-126); BUN/Creat Ratio 11.33 Ratio (12.00-20.00); Blood Urea Nitrogen 10.2 mg/dL (9.0-27.0); Calcium 8.2 mg/dL (8.7-10.3); Carbon Dioxide 22.3 mmol/L (21.6-31.8); Chloride 109 mmol/L (96-109); Globulin 1.7 d/dL (1.6-3.3); Glucose 89 mg/dL (70-110); Potassium 3.7 mmol/L (3.5-5.5); Sodium 141 mmol/L (135-145); Total Bilirubin 0.8 mg/dL (0.3-1.2); Total Protein 5.1 d/dL (6.2-8.2)
[2023-03-31] MEDS: amLODIPine 5 MG TAB PO SCH (09:47)
[2023-03-31] MEDS: ACYCLOVIR 200 MG CAP PO SCH ×2 (09:47→20:32)
[2023-03-31] MEDS: LORATADINE 10 MG TAB PO SCH (09:47)
[2023-03-31] MEDS: FAMOTIDINE 20 MG TAB PO SCH ×2 (09:47→20:32)
[2023-03-31] MEDS: LOSARTAN 50 MG TAB PO SCH (09:48)
[2023-03-31] MEDS: PROPRANOLOL LA 80 MG CAP.SA.24H PO SCH (09:48)
--- NOTE | 2023-03-31 15:09 | US ---
EXAMINATION TYPE: US kidneys/renal and bladder DATE OF EXAM: 03/31/2023 COMPARISON: NONE CLINICAL INDICATION: Male, 57 years old with history of hydronephrosis/UTI; known left renal stone, h ydro on CT EXAM MEASUREMENTS: Right Kidney: 12.3 x 5.4 x 5.9 cm Left Kidney: 13.9 x 6.0 x 7.0 cm Right Kidney: No hydronephrosis or masses seen Left Kidney: 1.5cm inferior pole stone seen with mild hydronephrosis Bladder: wnl incidental finding of 13.1cm spleen and possible left sided pleural effusion No masses are identified. The urinary bladder is anechoic. Bilateral ureteral jets are seen. IMPRESSION: Mild left-sided hydronephrosis with nephrolithiasis as noted above.
--- NOTE | 2023-03-31 19:53 | P.CONS ---
History of Present Illness - Reason for Consult Consult date: 03/31/23 - History of Present Illness Patient is a 57-year-old male with a past medical history significant for CLL on chemotherapy patient was recently evaluated in the ER for the patient was diagnosed with pyelonephritis and was discharged home on Bactrim DS patient did mention he did have improvement in his symptoms initially however after stopping his Bactrim DS he did have some recurrence of urinary symptoms of bur gee and difficulty urination, patient was restarted on Bactrim by his oncologist however after taking the dose that he did have significant itching as he stopped taking it patient denies having any rash any tongue swelling or other symptoms associated with it with worsening urinary symptoms of burning difficulty urination and patient developing a fever of 102 F the patient presented to hospital on arrival to the ER yesterday morning patient did have a temperature 100.6 F patient was nontachycardic hypertensive and not hypoxic he did have a normal white count slight leukopenia today kidney function was normal limits of the normal he did have positive UA COVID testing was negative patient urine cultures obtained on 05 March did grow E. coli that was a sensitive pathogen and was sensitive to Bactrim DS patient was started on ceftriaxone infectious disease was consulted for further management of antibiotic therapy patient did have a CT abdominal pelvis on 03/05/2023 did shows mild to moderate left-sided hydronephrosis Past Medical History Past Medical History: Hypertension, Prostate Disorder Additional Past Medical History / Comment(s): hand tremors radha. CLL-SLL History of Any Multi-Drug Resistant Organisms: None Reported Past Surgical History: No Surgical Hx Reported Additional Past Surgical History / Comment(s): colonocsopy, liver biopsy,lft thumb surgery to repair injury Past Anesthesia/Blood Transfusion Reactions: No Reported Reaction Past Psychological History: No Psychological Hx Reported Smoking Status: Former smoker Past Alcohol Use History: Daily Past Drug Use History: None Reported - Past Family History Mother Family Medical History: Cancer Additional Family Medical History / Comment(s): PANCREAS- CANCER Medications and Allergies Home Medications Medication Instructions Recorded Confirmed Type Losartan Potassium [Cozaar] 100 mg PO DAILY 04/28/16 03/30/23 History Propranolol LA [Inderal LA] 80 mg PO DAILY 07/06/22 03/30/23 History ALPRAZolam [Xanax] 0.5 mg PO HS PRN 03/05/23 03/30/23 History Acyclovir [Zovirax] 400 mg PO BID 03/05/23 03/30/23 History Escitalopram [Lexapro] 5 mg PO HS 03/05/23 03/30/23 History Ondansetron Odt [Zofran Odt] 4 mg PO Q8HR PRN #14 tab 03/05/23 03/30/23 Rx Venetoclax [Venclexta] 400 mg PO DAILY@1800 03/05/23 03/30/23 History amLODIPine [Norvasc] 5 mg PO DAILY 03/05/23 03/30/23 History diphenhydrAMINE [Benadryl] 25 mg PO HS 03/05/23 03/30/23 History traZODone HCL [Desyrel] 50 mg PO HS PRN 03/05/23 03/30/23 History Allergies Allergy/AdvReac Type Severity Reaction Status Date / Time corn Allergy sinus Verified 03/31/23 09:12 drainage egg Allergy Anaphylaxis Verified 03/31/23 09:20 milk Allergy Anaphylaxis Verified 03/31/23 09:20 Milk Containing Products Allergy Anaphylaxis Verified 03/31/23 09:20 wheat Allergy sinus Verified 03/31/23 09:13 drainage Physical Exam Vitals: Vital Signs Temp Pulse Resp BP BP Pulse Ox 03/31/23 08:12 98.5 F 74 18 133/76 03/31/23 07:23 98.5 F 64 18 118/65 97 03/31/23 02:00 97.7 F 65 97/57 95 03/30/23 21:19 73 18 03/30/23 20:58 98.4 F 73 18 115/75 98 03/30/23 18:46 98.2 F 113/75 03/30/23 13:48 98.6 F 20 111/71 Intake and Output 03/30/23 03/31/23 03/31/23 22:59 06:59 14:59 Intake Total 120 240 Balance 120 240 Intake: Oral 120 240 Other: Voiding Method Toilet Toilet # Voids 2 Weight 86.183 kg Results CBC & Chem 7: 03/31/23 05:21 03/31/23 05:21 Labs: Abnormal Lab Results - Last 24 Hours (Table) 07/19/23 07/19/23 07/19/23 Range/Units 12:15 12:15 12:15 WBC (4.50-10.00) X 10*3/uL RBC 4.13 L (4.30-5.90) m/uL Hgb 12.4 L (13.0-17.5) gm/dL Hct 36.8 L (39.0-53.0) % Lymphocytes # 0.4 L (1.0-4.8) k/uL Eosinophils # (0.04-0.35) X 10*3/uL Sodium 133 L (137-145) mmol/L BUN/Creatinine Ratio (12.00-20.00) Ratio Glucose 109 H (74-99) mg/dL Calcium (8.7-10.3) mg/dL Total Bilirubin 2.2 H (0.2-1.3) mg/dL Alkaline Phosphatase (41-126) U/L Total Protein (6.2-8.2) d/dL Albumin (3.8-4.9) d/dL Lipase 20 L (23-300) U/L Urine Blood Small H (Negative) Ur Leukocyte Esterase Moderate H (Negative) Urine RBC 42 H (0-5) /hpf Urine WBC 12 H (0-5) /hpf 03/31/23 03/31/23 Range/Units 05:21 05:21 WBC 3.47 L (4.50-10.00) X 10*3/uL RBC 3.56 L (4.30-5.90) m/uL Hgb 10.5 L (13.0-17.5) gm/dL Hct 32.3 L (39.0-53.0) % Lymphocytes # (1.0-4.8) k/uL Eosinophils # 0.03 L (0.04-0.35) X 10*3/uL Sodium (137-145) mmol/L BUN/Creatinine Ratio 11.33 L (12.00-20.00) Ratio Glucose (74-99) mg/dL Calcium 8.2 L (8.7-10.3) mg/dL Total Bilirubin (0.2-1.3) mg/dL Alkaline Phosphatase 33 L (41-126) U/L Total Protein 5.1 L (6.2-8.2) d/dL Albumin 3.4 L (3.8-4.9) d/dL Lipase (23-300) U/L Urine Blood (Negative) Ur Leukocyte Esterase (Negative) Urine RBC (0-5) /hpf Urine WBC (0-5) /hpf Assessment and Plan Plan: 1patient presented to hospital with complicated UTI in this patient recently completed a course of Bactrim DS with the last urine culture positive for E. coli on 03/05/2023, that was sensitive to Bactrim DS now with recurrence of symptoms possible related to underlying/abnormality as the patient did have evidence of mild to moderate hydronephrosis on the CT on his last ER visit 2-Rocephin 2 g daily while waiting for repeat culture to finalize 3-check ultrasound of the kidneys bladder condition evidence of any worsening hydronephrosis and may need further urological work-up We will follow on clinical condition and cultures to further adjust medication if needed Thank you for this consultation we will follow the patient along with you Dictation was produced using [email or web address] dictation software. please excuse any grammatical, word or spelling errors. Time with Patient: Greater than 30
[2023-03-31] MEDS: traZODone HCL 50 MG TAB PO SCH (20:32)
[2023-03-31] MEDS: diphenhydrAMINE 25 MG CAP PO SCH (20:32)
[2023-03-31] MEDS: ESCITALOPRAM 5 MG TAB PO SCH (20:32)
[2023-03-31] MEDS: Venetoclax [Venclexta] 100 MG Tablet PO SCH (20:32)
[2023-04-01 08:19] VITALS: RESP 18
--- NOTE | 2023-04-01 08:29 | CT ---
EXAMINATION TYPE: CT chest wo con DATE OF EXAM: 03/31/2023 COMPARISON: None HISTORY: 57-year-old male shortness of breath, dyspnea w exertion TECHNIQUE: Contiguous axial scanning of the chest without IV contrast. Coronal and sagittal reconstru ctions performed. CT DLP: 348.30 mGycm Automated exposure control for dose reduction was used. FINDINGS: Heart normal size without pericardial effusion. Ascending aorta mildly aneurysmal at 4.1 cm. Upper descending thoracic aorta ectatic at 3.3 cm. Minim al atherosclerotic arch calcifications. Convex arch vessel branching anatomy. Overlying to mildly enlarged caliber to the main right and left pulmonary arteries up to 2.6 cm sugge sting underlying pulmonary hypertension. Clustered nonenlarged bilateral axillary lymph nodes probably reactive. No thoracic lymphadenopathy b y CT size criteria. There are trace bilateral pleural effusions. Mild central interstitial thickening. Strandy atelectasi s in the lower lungs, possible early septal lines. Visualized upper abdomen shows no gross abnormality. Mild degenerative disc disease lower thoracic spine. IMPRESSION: 1. FINDINGS THAT SUGGEST UNDERLYING PULMONARY ARTERIAL HYPERTENSION. GIVEN TRACE BILATERAL PLEURAL EF FUSIONS , MILD CENTRAL INTERSTITIAL THICKENING EFFUSIONS, AND POSSIBLE EARLY SEPTAL LINES IN THE LUNG BASES, CORRELATE FOR FLUID OVERLOAD/THIRDS SPACING OR EARLY PULMONARY VASCULAR CONGESTION. 2. MILD ANEURYSM ASCENDING AORTA 4.1 CM.
[2023-04-01] MEDS: ACYCLOVIR 200 MG CAP PO SCH (09:27)
[2023-04-01] MEDS: amLODIPine 5 MG TAB PO SCH (09:28)
[2023-04-01] MEDS: LORATADINE 10 MG TAB PO SCH (09:28)
[2023-04-01] MEDS: FAMOTIDINE 20 MG TAB PO SCH (09:28)
[2023-04-01] MEDS: LOSARTAN 50 MG TAB PO SCH (09:28)
[2023-04-01] MEDS: PROPRANOLOL LA 80 MG CAP.SA.24H PO SCH (09:29)
[2023-04-01] MEDS: SODIUM CHLORIDE 0.9% 1,000 ML IV SCH (11:21)
--- NOTE | 2023-04-01 11:43 | CA ---
Transthoracic Echo Report Name: Jacob Hill Age: 57 Gender: M : 1965 Exam Date: 04/01/2023 07:26 Exam Location: [facility] Ht (in): 72 Wt (lb): 190 Ordering Physician: Semaj Herrera MD Attending/Referring Phys: [employer] Chief Cong Garcia Procedure CPT: Indications: dyspnea Cardiac Hx: Technical Quality: Contrast 1: Total Dose (mL): Contrast 2: Total Dose (mL): MEASUREMENTS (Male / Female) Normal Values 2D ECHO LV Diastolic Diameter PLAX 4.9 cm 4.2 - 5.9 / 3.9 - 5.3 cm LV Systolic Diameter PLAX 3.0 cm IVS Diastolic Thickness 1.4 cm 0.6 - 1.0 / 0.6 - 0.9 cm LVPW Diastolic Thickness 1.3 cm 0.6 - 1.0 / 0.6 - 0.9 cm LV Relative Wall Thickness 0.6 RV Internal Dim ED PLAX 3.2 cm LVOT Diameter 2.4 cm Aortic Root Diameter 3.6 cm LA Systolic Diameter LX 2.9 cm 3.0 - 4.0 / 2.7 - 3.8 cm LV Diastolic Volume MOD BP 91.8 cm??? 67 - 155 / 56 - 104 cm??? LV Systolic Volume MOD BP 35.5 cm??? 22 - 58 / 19 - 49 cm??? LV Ejection Fraction MOD BP 61.3 % >= 55 % LV Diastolic Volume MOD 4C 76.1 cm??? LV Systolic Volume MOD 4C 29.0 cm??? LV Ejection Fraction MOD 4C 61.9 % LV Diastolic Length 4C 7.1 cm LV Systolic Length 4C 6.0 cm LV Diastolic Volume MOD 2C 107.5 cm??? LV Systolic Volume MOD 2C 42.4 cm??? LV Ejection Fraction MOD 2C 60.5 % LV Diastolic Length 2C 7.3 cm LV Systolic Length 2C 6.2 cm LA Volume 54.1 cm??? 18 - 58 / 22 - 52 cm??? Ascending Aorta Diameter 3.6 cm DOPPLER AV Peak Velocity 121.0 cm/s AV Peak Gradient 5.9 mmHg LVOT Peak Velocity 97.0 cm/s LVOT Peak Gradient 3.8 mmHg AV Area Cont Eq pk 3.6 cm??? MV Peak Velocity 105.3 cm/s MV Peak Gradient 4.4 mmHg MV Mean Velocity 46.4 cm/s MV Mean Gradient 1.2 mmHg MV Velocity Time Integral 43.1 cm MR Peak Velocity 350.2 cm/s MR Peak Gradient 49.0 mmHg MV E' Velocity 8.7 cm/s TR Peak Velocity 210.1 cm/s TR Peak Gradient 17.6 mmHg Right Ventricular Systolic Press 23.3 mmHg FINDINGS Left Ventricle Normal LV size. Moderate concentric left ventricular hypertrophy with increased LV trabeculations. Left ventricular ejection fraction is estimated at 55-60 %. No obvious regional wall motion abnormality. Diastolic dysfunction cannot be assessed due to lacking data. Right Ventricle Normal right ventricular size. Right Atrium Normal right atrial size. Left Atrium Normal left atrial size. Mitral Valve Structurally normal mitral valve. Trace MR. Aortic Valve Trileaflet aortic valve. No aortic valve stenosis or regurgitation. Tricuspid Valve Structurally normal tricuspid valve. Trace TR. Pulmonic Valve Pulmonic valve not well visualized. Mild PI. Pericardium No pericardial effusion Aorta Normal size aortic root . CONCLUSIONS Normal LV size. Moderate concentric left ventricular hypertrophy. Left ventricular ejection fraction is estimated at 55-60 %. No obvious regional wall motion abnormality. No significant valvular abnormality and no significant chamber size abnormality No prior echo to compare with in [employer] database Previewed by: Dr Eligio Hughes (Electronically Signed) Final Date: 01 April 2023 11:42
[2023-04-01 15:13] VITALS: BP 159/99; PULSE 57; TEMP 97.7
--- NOTE | 2023-04-01 16:28 | P.PN ---
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 on today's evaluation that is 04/01/2023, the patient is afebrile, the patient is breathing comfortably on room it denies any chest pain or shortness of breath or cough no nausea no vomiting no abdominal pain. Urinary symptoms has improved denies having difficulty urination Objective - Vital Signs Vital signs: Vital Signs Temp 97.8 F 04/01/23 09:20 Pulse 63 04/01/23 09:20 Resp 18 04/01/23 09:20 BP 136/82 04/01/23 09:20 Pulse Ox 97 04/01/23 09:20 FiO2 Intake & Output 03/31/23 04/01/23 04/01/23 18:59 06:59 18:59 Intake Total 1070 Balance 1070 Intake: Oral 1070 Other: Voiding Method Toilet Toilet Toilet # Voids 1 2 - Exam GENERAL DESCRIPTION: Middle-aged male lying in bed in no distress RESPIRATORY SYSTEM: Unlabored breathing , decreased breath sounds at bases HEART: S1 S2 regular rate and rhythm , ABDOMEN: Soft , no tenderness EXTREMITIES: No edema feet - Labs CBC & Chem 7: 03/31/23 05:21 03/31/23 05:21 Labs: Microbiology - Last 24 Hours (Table) 03/30/23 12:15 Blood Culture - Preliminary Blood Assessment and Plan (1) Urinary tract infection Current Visit: Yes Status: Acute Code(s): N39.0 - URINARY TRACT INFECTION, SITE NOT SPECIFIED SNOMED Code(s): 44340674 Plan: 1patient presented to hospital with complicated UTI in this patient recently completed a course of Bactrim DS with the last urine culture positive for E. coli on 03/05/2023, that was sensitive to Bactrim DS now with recurrence of symptoms possible related to underlying/abnormality as the patient did have evid ence of mild to moderate hydronephrosis on the CT on his last ER visit 2Patient did have ultrasound that showed mild left-sided hydronephrosis did not mention any worsening 3-we will continue the patient Rocephin while waiting for the cultures to finalize Dictation was produced using [employer] dictation software. please excuse any grammatical, word or spelling errors. Time with Patient: Less than 30
[2023-04-01] MEDS ORDERED: SYMBICORT 160-4.5 MCG INHALER INHALATION SCH (20:00)
== END 2023-04-01 16:55 | disposition home or self-care (01) ==
LOC: EC 11:33 → 5NMEDONC 16:56
PROVIDERS: ADMIT Family Medicine; ATTEND Family Medicine
DX: N13.6 Pyonephrosis (principal); C91.10 Chronic lymphocytic leukemia of B-cell type not having achieved remission; I10 Essential (primary) hypertension; N42.9 Disorder of prostate, unspecified; D69.6 Thrombocytopenia, unspecified; R25.1 Tremor, unspecified; I45.10 Unspecified right bundle-branch block; D64.9 Anemia, unspecified; Z79.899 Other long term (current) drug therapy; Z91.012 Allergy to eggs; Z91.011 Allergy to milk products; Z91.018 Allergy to other foods; Z20.822 Contact with and (suspected) exposure to COVID-19; Z87.891 Personal history of nicotine dependence; Z87.440 Personal history of urinary (tract) infections; Z92.21 Personal history of antineoplastic chemotherapy; Z80.0 Family history of malignant neoplasm of digestive organs
CPT/HCPCS: 96361 ×4; 96365; 96366; 96376; 96375; 99285; 36415; 93306; 80053 ×2; 82150; 83690; 85025 ×2; 81001; 87040; 87086; 87635; 71046; 76770; 71250; G0378 ×3; J2405; J0696 ×3

== ENCOUNTER → 2023-08-03 | Outpatient (CLI) | payer BC ==
[2023-08-03 17:17] LABS: BUN/Creat Ratio 16.78 Ratio (12.00-20.00); Basophils # (A) 0.07 X 10*3/uL (0.00-0.10); Basophils % (A) 1.2 %; Blood Urea Nitrogen 15.1 mg/dL (9.0-27.0); Calcium 9.4 mg/dL (8.7-10.3); Carbon Dioxide 27.7 mmol/L (21.6-31.8); Chloride 104 mmol/L (96-109); Eosinophils # (A) 0.02 X 10*3/uL (0.04-0.35); Eosinophils % (A) 0.3 %; Glucose 95 mg/dL (70-110); HCT 46.2 % (39.6-50.0); HGB 15.6 g/dL (13.0-17.0); Lymphocytes # (A) 1.71 X 10*3/uL (0.90-5.00); Lymphocytes % (A) 29.6 %; MCH 31.3 pg (27.0-32.0); MCHC 33.8 g/dL (32.0-37.0); MCV 92.6 FL (80.0-97.0); Mean Platelet Volume 9.3 FL (9.5-12.2); Monocytes % (A) 15.6 %; NRBC Per 100 WBC 0 X 10*3/uL (0.00-0.01); Neutrophils # (A) 3.02 X 10*3/uL (1.80-7.70); Neutrophils % (A) 52.3 %; Platelet Count 251 X 10*3/uL (140-440); Potassium 4.4 mmol/L (3.5-5.5); RBC 4.99 X 10*6/uL (4.40-5.60); RDW 14.6 % (11.5-14.5); Sodium 140 mmol/L (135-145); WBC 5.78 X 10*3/uL (4.50-10.00)
[2023-08-03 18:33] LABS: Appearance,Urine Turbid (Clear); Bilirubin,Urine Negative (Negative); Blood,Urine Large (Negative); Color,Urine Dark Yellow (Yellow); Ketones,Urine Negative (Negative); Nitrite,Urine Negative (Negative); PH, Urine 5.5; Specific Gravity,Urine 1.019 (1.001-1.030); Urobilinogen,Urine 0.2 E.U./DL
[2023-08-03 18:38] LABS: Bacteria,Urine None Seen (None Seen)
== END | disposition home or self-care (01) ==
LOC: LABPAT 09:17
PROVIDERS: ATTEND Urology
DX: Z01.812 Encounter for preprocedural laboratory examination (principal); N20.0 Calculus of kidney; R31.29 Other microscopic hematuria
CPT/HCPCS: 36415; 80048; 81001; 85025; 87086

== ENCOUNTER 2023-08-09 13:08 | Day surgery (SDC) | payer BC ==
[~2023-08-09 13:08] MED LIST changes: +DEXAMETHASONE SOD PHOSPHATE 4 MG/ML 1 ML VIAL IV ONE; +HYDROmorphone 0.5 MG/0.5 ML SYRINGE IVP PRN; +MIDAZOLAM 2 MG/2 ML VIAL IV PRN; +SCOPOLAMINE 1 MG/72 HR PATCH TRANSDERM ONE
[2023-08-09] MEDS: ONDANSETRON 4 MG/2 ML VIAL IVP ONE ×2 (14:00→17:05)
--- NOTE | 2023-08-09 14:04 | XR ---
EXAMINATION TYPE: XR KUB DATE OF EXAM: 08/09/2023 COMPARISON: 08/01/2023 INDICATION: Renal stones TECHNIQUE: Single view abdomen supine view FINDINGS: There is a normal bowel gas pattern. Psoas margins are normal. No organomegaly is present. Left ureteral stent is present. There is a 1.1 cm calcification inferior pole left kidney. No signifi cant interval change. IMPRESSION: 1. 0.1 cm inferior pole left renal stone. 2. Left ureteral stent
[2023-08-09] MEDS ORDERED: MIDAZOLAM 2 MG/2 ML VIAL IVP ONE (14:23)
--- NOTE | 2023-08-09 14:41 | P.HPIHPCON ---
History of Present Illness H&P Date: 08/09/23 Chief Complaint: Left hydronephrosis, renal stone This is a 58-year-old male with history of left UPJ obstruction, underwent a ureteral balloon dilation approximately 4 weeks ago. Of note he also has a history of 1.1 cm left-sided renal stone.. Discussed option of proceeding with left-sided ureteroscopy with holmium laser. Discussed the risk which includes but not limited to bleeding, infection, injury to the ureter. Discussed also if there is persisting narrowing at the UPJ I might not be able to do ureteroscopy. Understood all the risk and agreed to proceed with a left-sided ureteroscopy, holmium laser lithotripsy, stone basketing and stent removal versus exchange Consent for Procedure: I have explained the operation/procedure to the patient, including the risks, benefits, side effects, alternative therapies (including not receiving the proposed treatment or service), the likelihood of the patient achieving his/her goals, and potential recuperation problems for the procedure/sedation/analgesia, as well as any blood products, if indicated. I also explained to the patient the risks, benefits and side effects of the alternatives, as well as the risks related to not receiving the proposed procedure, care, treatment, or services. Past Medical History Past Medical History: Cancer, Hypertension, Prostate Disorder Additional Past Medical History / Comment(s): hand tremors radha, kidney stones, [facility] CLL-SLL dx. December 2022 History of Any Multi-Drug Resistant Organisms: None Reported Past Surgical History: Orthopedic Surgery Additional Past Surgical History / Comment(s): colonocsopy, liver biopsy, lft thumb surgery to repair injury, cystoscopy w/ureteral stent @[facility] Past Anesthesia/Blood Transfusion Reactions: No Reported Reaction Smoking Status: Former smoker - Past Family History Mother Family Medical History: Cancer Additional Family Medical History / Comment(s): PANCREAS- CANCER Medications and Allergies Home Medications Medication Instructions Recorded Confirmed Type Losartan Potassium [Cozaar] 100 mg PO DAILY 04/28/16 08/09/23 History Propranolol LA [Inderal LA] 80 mg PO DAILY 07/06/22 08/09/23 History ALPRAZolam [Xanax] 0.5 mg PO HS PRN 03/05/23 08/09/23 History Acyclovir [Zovirax] 400 mg PO BID 03/05/23 08/09/23 History Escitalopram [Lexapro] 5 mg PO HS 03/05/23 08/09/23 History Ondansetron Odt [Zofran ODT] 4 mg PO Q8HR PRN #14 tab 03/05/23 08/09/23 Rx Venetoclax [Venclexta] 400 mg PO DAILY@1800 03/05/23 08/09/23 History amLODIPine [Norvasc] 5 mg PO DAILY 03/05/23 08/09/23 History diphenhydrAMINE [Benadryl] 25 mg PO HS 03/05/23 08/09/23 History traZODone HCL [Desyrel] 50 mg PO HS PRN 03/05/23 08/09/23 History Loratadine [Claritin] 10 mg PO DAILY 90 Days #90 tab 04/01/23 08/09/23 Rx Allergies Allergy/AdvReac Type Severity Reaction Status Date / Time corn Allergy sinus Verified 08/09/23 13:43 drainage egg Allergy Anaphylaxis Verified 08/09/23 13:43 milk Allergy Anaphylaxis Verified 08/09/23 13:43 Milk Containing Products Allergy Anaphylaxis Verified 08/09/23 13:43 (Dairy) [Milk Containing Products] wheat Allergy sinus Verified 08/09/23 13:43 drainage Surgical - Exam Vital Signs Temp Pulse Resp BP Pulse Ox 97.6 F 59 L 16 146/78 99 08/09/23 13:42 08/09/23 13:42 08/09/23 13:42 08/09/23 13:42 08/09/23 13:42 - General no distress, no pain - Eyes normal ocular movement, no pale - ENT normal nares, normal mucosa - Respiratory normal expansion, normal respiratory effort - Abdomen Abdomen: soft, non tender Assessment and Plan Assessment: OR for left-sided ureteroscopy, holmium laser lithotripsy, stone basketing and stent removal versus exchange
[2023-08-09] MEDS ORDERED: KETOROLAC 15 MG/ML 1 ML VIAL ONE (15:06)
[2023-08-09] MEDS ORDERED: PROPOFOL 10 MG/ML 20 ML VIAL IV ONE (15:06)
[2023-08-09] MEDS ORDERED: GLYCOPYRROLATE 0.2 MG/ML 2 ML VIAL ONE (15:06)
[2023-08-09] MEDS ORDERED: ROCURONIUM 10 MG/ML (5 ML VIAL) IV ONE (15:06)
[2023-08-09] MEDS ORDERED: NEOSTIGMINE 1 MG/ML 10 ML VIAL ONE (15:06)
[2023-08-09] MEDS ORDERED: fentaNYL (PF) 50 MCG/ML 2 ML AMP ONE (15:06)
[2023-08-09] MEDS ORDERED: PHENYLEPHRINE-0.9% NACL SYG 1,000 MCG/10 ML SYRINGE ONE (15:06)
[2023-08-09] MEDS ORDERED: LIDOCAINE 1% INJ 10MG/ML (20 ML MDV) ONE (15:06)
[2023-08-09] MEDS ORDERED: SUCCINYLCHOLINE CHLORIDE 200 MG/10 ML VIAL IV ONE (15:06)
[2023-08-09] MEDS ORDERED: MIDAZOLAM 2 MG/2 ML VIAL ONE (15:06)
[2023-08-09 16:40] VITALS: TEMP 97.7
--- NOTE | 2023-08-09 16:48 | P.OP ---
Date of Procedure: 08/09/23 Preoperative Diagnosis: Left-sided renal stone, hydronephrosis Postoperative Diagnosis: Same Procedure(s) Performed: Cystoscopy, left ureteroscopy, holmium laser lithotripsy, stone basketing and stent exchange Implants: 6-[place] by 28 cm stent and left ureter or left on a string Anesthesia: SETH Surgeon: Josef Anna Estimated Blood Loss (ml): 5 Pathology: other (left renal stone) Condition: stable Disposition: PACU Indications for Procedure: This is a 58-year-old male with history of left UPJ obstruction, underwent a ureteral balloon dilation approximately 4 weeks ago. Of note he also has a history of 1.1 cm left-sided renal stone.. Discussed option of proceeding with left-sided ureteroscopy with holmium laser. Discussed the risk which includes but not limited to bleeding, infection, injury to the ureter. Discussed also if there is persisting narrowing at the UPJ I might not be able to do ureteroscopy. Understood all the risk and agreed to proceed with a left-sided ureteroscopy, holmium laser lithotripsy, stone basketing and stent removal versus exchange Operative Findings: Wide open UPJ, left-sided lower pole stone Description of Procedure: Patient brought to the operating room, general anesthesia was induced. He was prepped and draped in sterile fashion and placed in dorsal lithotomy position. Cystoscopy fitted 21-[place] sheath was inserted per urethra, cystoscopy was performed which showed no abnormality within the bladder. Attention was then carried to the left ureteral orifice, stent was grasped and removed to the meatus. Next a sensor wire was advanced through the stent, the stent was removed with the wire in place. Next under fluoroscopy 1113 [place] access sheath was passed over the wire, the ureteroscope was inserted through the access sheath, renoscopy was performed which showed a stone within the lower pole, patient UPJ was wide open.. Using the stone basket the stone was repositioned in the upper pole. Using the holmium laser the stone was f ragmented, stone fragments were removed using the stone basket. Repeat renoscopy showed no sizable stones or injury to the kidney. Pullback ureteroscopy was performed which showed no injury to ureter or any ureteral stones, The ureteroscope was withdrawn and a sensor wire was advanced through. Next a ureteral stent was passed over the wire, the proximal curl was was visualized on fluoroscopy and the distal curl was visualized using the cystoscope. The stent was left on a string and taped to the patient penis. Patient tolerated procedure well was taken to recovery in stable condition
[2023-08-09 17:07] VITALS: BP 143/77
[2023-08-09 17:34] VITALS: PULSE 49; RESP 15
--- NOTE | 2023-08-09 18:10 | FL ---
Intraoperative/procedural fluoroscopic services were provided. Total fluoroscopy time is 1320 seconds with a total of 3 submitted images to PACS. Please see the operative/procedural note for further det ails. DAP: 2.4991 Gycm2
== END 2023-08-09 17:43 | disposition home or self-care (01) ==
LOC: OR 13:08
PROVIDERS: ATTEND Urology
DX: N13.2 Hydronephrosis with renal and ureteral calculous obstruction (principal); I10 Essential (primary) hypertension; Z80.0 Family history of malignant neoplasm of digestive organs; Z91.012 Allergy to eggs; Z91.011 Allergy to milk products; Z79.899 Other long term (current) drug therapy
CPT/HCPCS: 52356; 82365; 74018; J2250; J1100; J0690; J2405

== ENCOUNTER → 2023-09-26 | Outpatient (CLI) | payer BC ==
[~2023-09-26] MED LIST changes: -DEXAMETHASONE SOD PHOSPHATE 4 MG/ML 1 ML VIAL IV ONE; +FUROSEMIDE 10 MG/ML 2 ML VIAL IV ONE; -HYDROmorphone 0.5 MG/0.5 ML SYRINGE IVP PRN; -LACTATED RINGERS 1,000 ML IV SCH; -MIDAZOLAM 2 MG/2 ML VIAL IV PRN; -SCOPOLAMINE 1 MG/72 HR PATCH TRANSDERM ONE
--- NOTE | 2023-09-26 21:50 | NM ---
EXAMINATION TYPE: NM lasix renogram DATE OF EXAM: 09/26/2023 COMPARISON: NONE CLINICAL INDICATION: Male, 58 years old with history of N13.30 hydronephrosis; Following administration of 10.2 mCi Tc 99m MAG3 with 20mg Lasix. Immediate images post injection FINDINGS: Left: 47.5 %. Right: 52.5 %. Max renal flow left: 3 minutes. Max renal flow right: 3 minutes. Satisfactory accumulation of radiotracer within both renal collecting systems. After the administrati on of Lasix, there is prompt excretion from both collecting systems. T 1/2 left: 13.5 minutes minutes. T 1/2 right: 14.8 minutes minutes. IMPRESSION: Normal Lasix renogram no evidence for obstruction.
== END | disposition home or self-care (01) ==
LOC: RADNMMAIN 12:57
PROVIDERS: ATTEND Urology
DX: N13.30 Unspecified hydronephrosis (principal)
CPT/HCPCS: 78708; A9562

== ENCOUNTER → 2023-12-02 | Outpatient (CLI) | payer BC ==
--- NOTE | 2023-12-02 13:49 | US ---
EXAMINATION TYPE: US kidneys/renal and bladder DATE OF EXAM: 12/02/2023 COMPARISON: 05/17/2023 CT. CLINICAL INDICATION: Male, 58 years old with history of N20.0 KIDNEY STONE; Patient states history of left renal stone and stent x 2 months ago. Patient states history of right side pain. No pain now at time of scan. EXAM MEASUREMENTS: Right Kidney: 12.4 x 5.1 x 5.3 cm Left Kidney: 13.3 x 5.0 x 6.5 cm Right Kidney: No hydronephrosis or masses seen Left Kidney: Medial anechoic lesion at hilum = 3.2 x 2.0 cm felt to be dilated pelvis seen on 05/17/20 CT. Left ureteral stent poorly visualized due to ultrasound technique. Bladder: distended, anechoic Bilateral Jets not seen There is no evidence for hydronephrosis at this point in time. No nephrolithiasis is seen. No ирина s are identified. The urinary bladder is anechoic. IMPRESSION: 1. No evidence for obstructive uropathy 2. Dilated left extra renal pelvis as seen on prior urogram 05/17/2023.
== END | disposition home or self-care (01) ==
LOC: RADUSWWP 12:54
PROVIDERS: ATTEND Family Medicine
DX: N28.89 Other specified disorders of kidney and ureter (principal); N20.0 Calculus of kidney; Z96.0 Presence of urogenital implants
CPT/HCPCS: 76770

== ENCOUNTER → 2024-03-28 | Outpatient (CLI) | payer BC ==
[2024-03-28 19:13] LABS: Basophils # (A) 0.02 X 10*3/uL (0.00-0.10); Basophils % (A) 0.5 %; Eosinophils # (A) 0.21 X 10*3/uL (0.04-0.35); Eosinophils % (A) 5.2 %; HGB 14.9 g/dL (13.0-17.0); Lymphocytes # (A) 0.94 X 10*3/uL (0.90-5.00); Lymphocytes % (A) 23.1 %; MCH 34.3 pg (27.0-32.0); MCHC 35.5 g/dL (32.0-37.0); MCV 96.8 FL (80.0-97.0); Mean Platelet Volume 9.8 FL (9.5-12.2); Monocytes # (A) 0.52 X 10*3/uL (0.20-1.00); Monocytes % (A) 12.8 %; NRBC Per 100 WBC 0 X 10*3/uL (0.00-0.01); Neutrophils # (A) 2.36 X 10*3/uL (1.80-7.70); Neutrophils % (A) 57.9 %; Platelet Count 194 X 10*3/uL (140-440); RBC 4.34 X 10*6/uL (4.40-5.60); RDW 12.8 % (11.5-14.5); WBC 4.07 X 10*3/uL (4.50-10.00)
== END | disposition home or self-care (01) ==
LOC: LABWHC1 14:47
PROVIDERS: ATTEND Internal Medicine Hematology & Oncology
DX: S40.869A Insect bite (nonvenomous) of unspecified upper arm, initial encounter (principal); C91.10 Chronic lymphocytic leukemia of B-cell type not having achieved remission; X58.XXXA Exposure to other specified factors, initial encounter
CPT/HCPCS: 36415; 85025; 86618

== ENCOUNTER → 2024-11-02 | Outpatient (CLI) | payer BC ==
--- NOTE | 2024-11-02 12:13 | US ---
EXAMINATION TYPE: US carotid duplex BILAT DATE OF EXAM: 11/02/2024 COMPARISON: NONE CLINICAL INDICATION: Male, 59 years old with history of [id number] OCCLUSION AND STENOSIS; Additional History: I65.- Occlusion/stenosis of specified precerebral artery, specified laterality TECHNIQUE: Grayscale, color Doppler and spectral Doppler evaluation of the bilateral carotid systems and vertebral arteries. Indirect Doppler criteria was utilized. FINDINGS: EXAM MEASUREMENTS: RIGHT: Peak Systolic Velocity (PSV) cm/sec ----- Right CCA: 56.6 ----- Right ICA: 77.8 ----- Right ECA: 119.8 ICA/CCA ratio: 1.4 RIGHT: End Diastole cm/sec ----- Right CCA: 17.4 ----- Right ICA: 31.1 ----- Right ECA: 18.9 LEFT: Peak Systolic Velocity (PSV) cm/sec ----- Left CCA: 58.9 ----- Left ICA: 69.3 ----- Left ECA: 150.7 ICA/CCA ratio: 1.2 LEFT: End Diastole cm/sec ----- Left CCA: 18.2 ----- Left ICA: 23.2 ----- Left ECA: 24.7 VERTEBRALS (direction of flow): Right Vertebral: Antegrade Left Vertebral: Antegrade Rhythm: Normal HOUSE DETECTIVE NOTES: minimal plaque seen in bulbs Color Doppler imaging shows patency with blood flow throughout the carotid artery. Spectral waveforms are within normal limits. IMPRESSION: No evidence of hemodynamically significant stenosis. Criteria for Assigning % of Stenosis / Diameter reduction (Estimation based on the indirect measurements of the internal carotid artery velocities (ICA PSV). 1. Normal (no stenosis)=ICA PSV < 125 cm/s: ratio < 2.0: ICA EDV<40 cm/s. 2. Less than 50% stenosis=ICA PSV < 125 cm/s: ratio < 2.0: ICA EDV<40 cm/s. 3. 50 to 69% stenosis=ICA PSV of 125 to 230 cm/s: ration 2.0 ? 4.0: ICA EDV 40-100 cm/s. 4. Greater than 70% stenosis to near occlusion= ICA PSV > 230 cm/s: ratio > 4.0: ICA EDV > 100 cm/s. 5. Near occlusion= ICA PSV velocities may be low or undetectable: variable ratio and ICA EDV. 6. Total occlusion=unable to detect flow. [facility], , 11/02/2024 12:11 PM
--- NOTE | 2024-11-02 13:12 | CA ---
Stress Echo Report Jacob Do Age: 59 Gender: M : 1965 Exam Date: 11/02/2024 10:40 Exam Location: [place] [facility] Ht (in): 72 Wt (lb): 220 Ordering Physician: Semaj Nagy MD Referring Physician: Tony Real MD [employer] Loader: Kerry Lu RDCS Technologist Procedure CPT: Indication: I20.9 Angina ICD-9 Codes: Rhythm: Patient History: CHEST PAIN, HTN, TIA, FAMILY HX OF HEART DISEASE Cardiac Medications: SEE LIST,,,,, Medications in past 24 hours: Contrast: Stress Results Protocol: Mert Total dose(mL): Exercise Duration (min:sec): 11:[address] Depression (mm): Angina Score: Martínez Score: METS: 12.1 Resting HR: 58 Resting BP: 142 / 92 Peak HR: 117 Peak BP: 211 / 73 Max Predicted HR: 160 73 % Max Predicted HR Target HR: 136 Double Product: [id number] Stress Summary: BP Response: Reason for Termination: MAX EXERTION Cardiac Symptoms: DIFFICULTY IN BREATHING ECG Analysis Resting ECG: Stress ECG: Arrhythmia: Echo Analysis Resting Echo: Peak Echo Analysis: MEASUREMENTS (Male/Female) Normal Values CONCLUSIONS Excellent exercise tolerance The patient achieved only 73% of maximum predicted heart rate Normal electrocardiogram and echocardiogram in response to exercise up to the level of heart rate achieved Overall nondiagnostic stress testing due to the patient achieving less than 85% of maximum predicted heart Dr. Pablo Thomas MD (Electronically Signed) Final Date: 02 November 2024 13:11
== END | disposition home or self-care (01) ==
LOC: RADNMMAIN 09:56
PROVIDERS: ATTEND Internal Medicine Geriatric Medicine
DX: I65.23 Occlusion and stenosis of bilateral carotid arteries (principal); I10 Essential (primary) hypertension; I20.9 Angina pectoris, unspecified; Z82.49 Family history of ischemic heart disease and other diseases of the circulatory system
CPT/HCPCS: 93351; 93880